=== PATIENT | female | born 1960 | race Caucasian/White ===

== ENCOUNTER 2017-05-01 16:02 | Emergency (ER) | payer OTHER ==
[2017-05-01 18:20] LABS: URINE BLOOD (Dip) POC Trace-intact (NEGATIVE); URINE GLUCOSE (Dip) POC Negative (NEGATIVE); URINE KETONES (Dip) POC Negative (NEGATIVE); URINE LEUKOCYTE EST (Dip) POC Negative (NEGATIVE); URINE NITRITE (Dip) POC Negative (NEGATIVE); URINE TOTAL PROTEIN POC Negative (NEGATIVE)
== END 2017-05-01 18:50 | disposition home or self-care (01) ==
LOC: FTE 16:02
DX: N93.9 Abnormal uterine and vaginal bleeding, unspecified (principal); J45.909 Unspecified asthma, uncomplicated; E11.9 Type 2 diabetes mellitus without complications; E03.9 Hypothyroidism, unspecified; R10.2 Pelvic and perineal pain
CPT/HCPCS: 76830; 76856; 81003; 99284-25

== ENCOUNTER 2017-08-28 01:32 | Emergency (ER) | payer OTHER ==
[2017-08-28] MEDS: HYDROCODONE/APAP (5/325) TAB PO (02:46)
== END 2017-08-28 05:00 | disposition home or self-care (01) ==
LOC: FTE 01:32
DX: M25.561 Pain in right knee (principal); E11.9 Type 2 diabetes mellitus without complications; E03.9 Hypothyroidism, unspecified; J45.909 Unspecified asthma, uncomplicated
CPT/HCPCS: 29505; 73562; 73590; 99283-25